=== PATIENT | male | born 1990 | race Hispanic/Latino ===

== ENCOUNTER → 2018-10-15 | Outpatient (CLI) | payer OTHER ==
[~2018-10-15] MED LIST: GASTROGRAFIN SOLUTION 30ML (Q9963) As Ordered ONE; ISOVUE-370 76% 100ML VIAL (Q9967) As Ordered ONE
--- NOTE | 2018-10-16 10:49 | REP ---
Clinical: Abdominal pain. Technique: Axial contrast enhanced images from the lung bases to the pubic symphysis using oral (per protocol) and 100 ml Isovue 370 intravenous contrast material with coronal and sagittal re-formations. Findings: Lung bases clear. Visualized heart and pericardium normal. Liver, spleen, pancreas, bilateral adrenal glands and kidneys normal. The patient is status post cholecystectomy. The enteric system is without obstruction or acute inflammatory process. Normal terminal ileum and appendix identified in the right lower quadrant. Pelvis demonstrates normal bladder and age appropriate prostate/seminal vesicles. No ascites. No free air. No adenopathy. Abdominal aorta without aneurysm or dissection. Musculoskeletal structures are intact. Impression: Normal contrast enhanced CT of the abdomen and pelvis. No acute abdominopelvic pathology appreciated. Electronically Signed by Ciro Barnett MD 10/16/2018 10:41 A
== END ==
LOC: M RAD 16:05
PROVIDERS: ATTEND General Practice
DX: R10.9 Unspecified abdominal pain (principal)

== ENCOUNTER 2019-01-14 11:29 | Day surgery (SDC) | payer OTHER ==
[~2019-01-14] VITALS: Ht 175.3 cm; Wt 74.8 kg
[~2019-01-14 11:29] MED LIST changes: +BUPR150T3 PO; +CELE100C PO; -GASTROGRAFIN SOLUTION 30ML (Q9963) As Ordered ONE; +HYDR-643 PO; -ISOVUE-370 76% 100ML VIAL (Q9967) As Ordered ONE; +LIAL1.2T PO; +NS 1,000 ML IV ONE; +ZOLO100T PO
--- NOTE | 2019-01-14 14:34 | ROOR ---
Patient Name: Hever Greene Procedure Date: 01/14/2019 2:06 PM Date of : 1990 Age: 29 Room: [facility] Gender: Male Note Status: Finalized Procedure: Total Colonoscopy to Cecum + ileoscopy + Bx Indications: Lower abdominal pain, Clinically significant diarrhea of unexplained origin Providers: Chip Ureña MD Referring MD: Tristen Delgado Requesting Provider: Medicines: Monitored Anesthesia Care Complications: No immediate complications. Procedure: Pre-Anesthesia Assessment: - The heart rate, respiratory rate, oxygen saturations, blood pressure, adequacy of pulmonary ventilation, and response to care were monitored throughout the procedure. The Colonoscope was introduced through the anus and advanced to the terminal ileum, with identification of the appendiceal orifice and IC valve. The colonoscopy was performed without difficulty. The patient tolerated the procedure well. The quality of the bowel preparation was excellent. Findings: The perianal and digital rectal examinations were normal. Non-bleeding internal hemorrhoids were found during retroflexion. The hemorrhoids were small and Grade I (internal hemorrhoids that do not prolapse). No other significant abnormalities were identified in a careful examination of the remainder of the colon. The terminal ileum appeared normal. Biopsies for histology were taken with a cold forceps from the ascending colon, transverse colon and descending colon for evaluation of microscopic colitis. The exam was otherwise without abnormality. Impression: - Non-bleeding internal hemorrhoids. - The examined portion of the ileum was normal. - The examination was otherwise normal. - Biopsies were taken with a cold forceps from the ascending colon, transverse colon and descending colon for evaluation of microscopic colitis. - The exam was otherwise normal to the cecum. Recommendation: - Patient has a contact number available for emergencies. The signs and symptoms of potential delayed complications were discussed with the patient. Return to normal activities tomorrow. Written discharge instructions were provided to the patient. - Discharge patient to home. - Continue present medications. - Await pathology results. - Telephone GI clinic for pathology results in 1 week. - Repeat colonoscopy at age 49 for screening purposes. - Return to referring physician. - Check Portal Online for Path Results.([email or web address] - The findings and recommendations were discussed with the patient's family. Chip Ureña MD Chip Ureña MD 01/14/2019 2:33:47 PM Electronically signed by Chip Ureña MD Number of Addenda: 0 Note Initiated On: 01/14/2019 2:06 PM Estimated Blood Loss: Estimated blood loss: none.
[2019-01-14 14:49] VITALS: BP 119/72
== END 2019-01-14 14:32 | disposition home or self-care (01) ==
LOC: M OPP 11:29
PROVIDERS: ATTEND Internal Medicine Gastroenterology
DX: K64.0 First degree hemorrhoids (principal); R10.30 Lower abdominal pain, unspecified; R19.7 Diarrhea, unspecified

== ENCOUNTER 2019-05-19 16:26 | Emergency (ER) | payer OTHER ==
[~2019-05-19] VITALS: Ht 175.3 cm; Wt 75.0 kg
[~2019-05-19 16:26] MED LIST changes: -NS 1,000 ML IV ONE
[2019-05-19] MEDS ORDERED: NEUR600T PO (16:31)
[2019-05-19] MEDS ORDERED: HYDR-3363 PO (16:31)
[2019-05-19 17:36] LABS: BASO % 0.5 % (0.0-1.0); EOS # 0.1 10^3/uL (0.0-0.5); HEMATOCRIT 43.4 % (42.0-52.0); HEMOGLOBIN 14.9 g/dl (13.5-17.5); LYMPH # 1.9 10^3/uL (1.5-5.0); LYMPH % 31.1 % (24.0-44.0); MEAN CORPUSCULAR HEMOGLOBIN 30.8 pg (27.0-33.0); MEAN CORPUSCULAR HGB CONC 34.3 g/dl (32.0-36.5); MEAN CORPUSCULAR VOLUME 89.7 fl (80.0-96.0); MONO # 0.4 10^3/uL (0.0-0.8); NEUTROPHILS # 3.6 10^3/uL (1.5-8.5); NEUTROPHILS % 60.2 % (36.0-66.0); PLATELET COUNT, AUTOMATED 221 10^3/uL (150-450); RED BLOOD COUNT 4.84 10^6/uL (4.30-6.10)
[2019-05-19 17:59] LABS: ALBUMIN 4.1 GM/DL (3.2-5.2); ALT/SGPT 17 U/L (12-78); BILIRUBIN,DIRECT 0.2 MG/DL (0.0-0.2); BILIRUBIN,TOTAL 0.6 MG/DL (0.2-1.0); BLOOD UREA NITROGEN 11 MG/DL (7-18); CALCIUM LEVEL 8.9 MG/DL (8.5-10.1); CARBON DIOXIDE LEVEL 32 MEQ/L (21-32); CHLORIDE LEVEL 104 MEQ/L (98-107); CREATININE FOR GFR 1.17 MG/DL (0.70-1.30); GLOMERULAR FILTRATION RATE > 60.0 (>60); GLUCOSE, FASTING 80 MG/DL (70-100); LIPASE 231 U/L (73-393); SODIUM LEVEL 141 MEQ/L (136-145); TOTAL PROTEIN 7.5 GM/DL (6.4-8.2)
--- NOTE | 2019-05-19 18:45 | REPVR ---
EXAM: US Scrotum EXAM DATE/TIME: 05/19/2019 6:33 PM CLINICAL HISTORY: 29 years old, male; Groin pain and scrotum pain; Additional info: L inguinal pain, L testicular pain TECHNIQUE: Imaging protocol: Real-time ultrasound of the scrotum and contents with color Doppler and image documentation. COMPARISON: No relevant prior studies available. FINDINGS: Right Testicle: Normal. No mass. No torsion. Normal vascular flow. Left Testicle: Normal. No mass. No torsion. Normal vascular flow. Epididymides: A left epididymal head cyst measuring 4.2 mm is present. The left epididymis otherwise has a normal appearance. The right epididymis has a normal appearance. Scrotum: Normal. IMPRESSION: Tiny left epididymal head cyst. Electronically signed by: Faisal Kearney On 05/19/2019 18:44:39 PM
--- NOTE | 2019-05-19 18:47 | REPVR ---
EXAM: US Pelvis Limited, Male EXAM DATE/TIME: 05/19/2019 6:33 PM CLINICAL HISTORY: 29 years old, male; Other: Lt groin pain; Additional info: L inguinal pain, L testicular pain TECHNIQUE: Imaging protocol: Real-time pelvic ultrasound with image documentation. COMPARISON: CT ABD/PEL W/IV ORAL CONTRAS 10/15/2018 6:13 PM FINDINGS: Sonographic examination of the right and left inguinal canals was performed. No mass, cyst, or hernia is identified. IMPRESSION: Unremarkable ultrasound of the inguinal canals. Electronically signed by: Faisal Kearney On 05/19/2019 18:47:00 PM
[2019-05-19 19:07] VITALS: BP 120/58
== END 2019-05-19 19:27 | disposition home or self-care (01) ==
LOC: M ED 16:26
DX: N50.3 Cyst of epididymis (principal); K58.9 Irritable bowel syndrome, unspecified; Z90.49 Acquired absence of other specified parts of digestive tract; Z79.899 Other long term (current) drug therapy